=== PATIENT | female | born 1995 | race Caucasian/White ===

== ENCOUNTER 2019-10-18 06:26 | Emergency (ER) | payer BC, OTHER ==
[~2019-10-18] VITALS: Ht 160 cm; Wt 68.0 kg
== END 2019-10-18 06:48 | disposition home or self-care (01) ==
LOC: ED 06:29
DX: F10.120 Alcohol abuse with intoxication, uncomplicated (principal); F17.200 Nicotine dependence, unspecified, uncomplicated; Y90.9 Presence of alcohol in blood, level not specified
CPT/HCPCS: 99283

== ENCOUNTER 2020-04-24 23:48 | Emergency (ER) | payer BC, OTHER ==
[~2020-04-24] VITALS: Ht 162.6 cm; Wt 70.0 kg
[2020-04-25] MEDS ORDERED: LIDOCAINE 1%, 10ML INFIL ONE
[2020-04-25] MEDS ORDERED: LORazepam 1MG TABLET ONE ×3 (00:04→19:28)
[2020-04-25] MEDS ORDERED: ZIPRASIDONE 20 MG INJ IM ONE ×5 (00:16→10:30)
[2020-04-25 00:27] LABS: ALANINE AMINOTRANSFERASE 27 U/L (12-78); ALBUMIN 4.4 g/dL (3.4-5.0); ANION GAP 6 mmol/L (5-15); CALCIUM 8.5 mg/dL (8.5-10.1); CHLORIDE 113 mmol/L (98-107); SALICYLATE LEVEL 1.8 mg/dL (2.8-20.0)
[2020-04-25] MEDS ORDERED: LORazepam 1MG TABLET PO ONE (00:30)
[2020-04-25 00:31] LABS: BASOPHILS % (AUTO) 1 % (0-1); EOSINOPHILS % (AUTO) 0 % (1-7); LYMPHOCYTES % (AUTO) 34 % (22-44); MEAN CORPUSCULAR HEMOGLOBIN 30.1 pg (27.0-34.8); MEAN CORPUSCULAR HGB CONC 34.3 g/dL (32.4-35.8); MEAN PLATELET VOLUME 7.8 fL (7.4-10.4); MONOCYTES % (AUTO) 7 % (2-9); NEUTROPHILS % (AUTO) 59 % (42-75); PLATELET COUNT 299 x10^3/uL (130-400); RED BLOOD COUNT 4.99 x10^6/uL (3.82-5.3); RED CELL DISTRIBUTION WIDTH 12.3 % (9.6-15.2)
[2020-04-25 00:32] LABS: ALKALINE PHOSPHATASE 64 U/L (45-117); BILIRUBIN,TOTAL 0.4 mg/dL (0.2-1.0); CREATININE 0.93 mg/dL (0.55-1.02); MD NO; TOTAL PROTEIN 7.7 g/dL (6.4-8.2)
[2020-04-25 00:44] LABS: MICROSCOPIC INDICATED
[2020-04-25] MEDS ORDERED: LIDOCAINE-MPF 1%, 5ML ONE (00:51)
[2020-04-25 00:54] LABS: AMPHETAMINE SCREEN, URINE Negative (Negative); BARBITURATE SCREEN, URINE Negative (Negative); BENZODIAZEPINE SCREEN, URINE Negative (Negative); CANNABINOID SCREEN, URINE Positive (Negative); COCAINE SCREEN, URINE Negative (Negative); METHADONE SCREEN, URINE Negative (Negative); OPIATE SCREEN, URINE Negative (Negative)
--- NOTE | 2020-04-25 01:10 | NUR ---
ERP AT BEDSIDE TO SUTURE WOUNDS.
--- NOTE | 2020-04-25 01:17 | NUR ---
PT REMOVED FROM [facility].
--- NOTE | 2020-04-25 03:52 | NUR ---
LATE ENTRY SUMMARY NOTE: THIS PT WAS BIB [facility] IN [facility]. PT PRESENTED WITH SELF INFLICTED LESIONS, HX OF SAME, DENIED SI, STATED WOUNDS WERE FOR ATTENTION. PT PRESENTED EXTREMELY ANXIOUS, AND AGITATED. THIS RN EDUCATED PT ABOUT RULES IN THE HOSPITAL INCLUDING NOT TO TOUCH GARAGE DOORS, AND NOT TO LEAVER HER ROOM. PT PROCEDED TO LEAVE ROOM AND TOUCH GARAGE DOORS. SECURITY CALLED, PT YELLING, WAVING FINGER IN FACE OF SECURITY GAURD. PT PLACED IN RESTRAINTS MEDICATED TO AUG. PT SCREAMS COULD BE HEARD FROM DOWN THE CASH, PT THRASHING AROUND IN BED, AND SPITTING AT THE SITTER.
--- NOTE | 2020-04-25 05:57 | NUR ---
LATE ENTRY: PT PLACED IN RESTRAINTS AT 0030, PT REMOVED FROM RESTRAINTS AT 0130. PT PUT BACK IN RESTRAINTS AT 0415 AND REMOVED AT 0530. BOTH TIMES RESTRAINTS WERE PLACED BECAUSE PT WAS YELLING, AGGRESSIVELY APPROACHING STAFF AND SLAMMING THE DOOR TO HER ROOM.
--- NOTE | 2020-04-25 06:44 | NUR ---
TP: PACKET FAXED TO [facility]
--- NOTE | 2020-04-25 07:06 | NUR ---
rec'd report from YARELY Fuentes (noc shift) pt is sleeping in bed. chest rise noted. sheet is pulled over pt head. sitter is at door.
--- NOTE | 2020-04-25 08:21 | NUR ---
pt resting in bed. sitter at door. appears in no acute distress
--- NOTE | 2020-04-25 08:56 | NUR ---
pt is requesting clothes and to use the phone. explained the legal hold rules. pt started yelling she was leaving but then just laid down.
--- NOTE | 2020-04-25 09:09 | NUR ---
pt declines food. resting in bed, appears in no acute distress
--- NOTE | 2020-04-25 09:37 | NUR ---
TASK RN NOTE: PT LAYING BACK IN BED, RESPIRATIONS EVEN AND UNLABORED. SITTER OUTSIDE OF ROOM FOR DIRECT OBSERVATION AND Q15 MIN SAFETY CHECKS.
--- NOTE | 2020-04-25 10:24 | NUR ---
pt became agitated and was interrupting other pts by going into the hallway and yelling. pt wants her cellphone and to go home "this is a big misunderstanding i want to go home, im going to lose my job" pt agreed to PO ativan. redirected to remain in room.
--- NOTE | 2020-04-25 10:42 | NUR ---
pt was given the chance to call girlfriend to speak with her about calling her job to let them know she was in the hospital. pt spoke with psych and was updated on her plan of care.
[2020-04-25] MEDS ORDERED: OLANZAPINE 5 MG TABLET ONE (11:18)
[2020-04-25] MEDS: OLANZAPINE 5 MG TABLET PO SCH (11:22)
--- NOTE | 2020-04-25 11:30 | NUR ---
pt resting in bed. meal tray given
--- NOTE | 2020-04-25 12:06 | NUR ---
pt sleeping in bed. sitter at door
[2020-04-25] MEDS ORDERED: LORazepam 2 MG/ML, 1ML IM PRN (12:30)
[2020-04-25] MEDS ORDERED: DIPHENHYDRAMINE 50 MG CAPSULE PO PRN (12:30)
[2020-04-25] MEDS ORDERED: HALOPERIDOL 5 MG TABLET PO PRN (12:30)
[2020-04-25] MEDS ORDERED: DIPHENHYDRAMINE 50 MG/ML, 1ML IM PRN (12:30)
[2020-04-25] MEDS ORDERED: HALOPERIDOL 5 MG/ML IM PRN (12:30)
--- NOTE | 2020-04-25 13:04 | NUR ---
pt resting comfortably in bed.
--- NOTE | 2020-04-25 14:11 | NUR ---
BREAK RN: PT RESTING IN ROOM. SITTER AT DOOR. NO ACUTE DISTRESS NOTED. WILL CONTINUE TO MONITOR WHILE PRIMARY RN IS ON BREAK.
--- NOTE | 2020-04-25 15:21 | NUR ---
pt still sleeping. father stopped by to visit but told him to try back tomorrow when she wasn't sleeping. he said he will call tomorrow before coming by
--- NOTE | 2020-04-25 16:10 | NUR ---
PT GIVEN APPLE JUICE AND APPEARS IN NO ACUTE DISTRESS.
--- NOTE | 2020-04-25 17:16 | NUR ---
PT USING PHONE TO CALL GIRLFRIEND
--- NOTE | 2020-04-25 18:16 | NUR ---
pt resting in bed. food, drink, bathroom offered.
[2020-04-25] MEDS ORDERED: DIPHENHYDRAMINE 50 MG CAPSULE ONE (19:28)
[2020-04-25] MEDS: LORazepam 1MG TABLET PO PRN (19:37)
--- NOTE | 2020-04-25 21:20 | NUR ---
Patient is resting comfortably in bed. Vital Signs within normal limits.
--- NOTE | 2020-04-25 22:58 | NUR ---
PT SLEEPING IN BED, NO DISTRESS, SITTER AT DOORWAY
--- NOTE | 2020-04-26 00:39 | NUR ---
pt up to telephone x1, calm and cooperative, back in bed, and resting comfortably.
[2020-04-26] MEDS ORDERED: LORazepam 1MG TABLET ONE ×3 (04:45→18:16)
[2020-04-26] MEDS: LORazepam 1MG TABLET PO PRN ×3 (04:48→18:24)
--- NOTE | 2020-04-26 04:55 | NUR ---
Pt awake and saying she is anxious and unable to sleep. Medication administered. Pt cooperative.
--- NOTE | 2020-04-26 06:57 | NUR ---
Report and care given to dayshift RN
--- NOTE | 2020-04-26 07:03 | NUR ---
PT SUPINE ON GURNEY WITH EYES CLOSED, RESTING CALMLY. NAD. PT DENIES ANY NEEDS AT THIS TIME. SITTER WITHIN VIEW AND SAFETY PRECAUTIONS IN PLACE. WILL CONTINUE TO MONITOR.
--- NOTE | 2020-04-26 07:11 | NUR ---
HOSPITAL BED REQUESTED.
--- NOTE | 2020-04-26 08:00 | NUR ---
PT UP TO PHONE TO MAKE CALL. PT BACK TO ROOM AND PLACED ON HOSPITAL BED. NAD, VSS. CALM AND COOPERATIVE WITH STAFF. SITTER IN VIEW AND SAFETY PRECAUTIONS IN PLACE. SAFETY HUSSEIN DOWN. WILL CONTINUE TO MONITOR.
--- NOTE | 2020-04-26 08:26 | NUR ---
PT GIVEN BREAKFAST MEAL TRAY
[2020-04-26] MEDS ORDERED: OLANZAPINE 5 MG TABLET ONE (08:45)
[2020-04-26] MEDS: OLANZAPINE 5 MG TABLET PO SCH (08:47)
--- NOTE | 2020-04-26 09:03 | NUR ---
PT'S FATHER AT BEDSIDE. PT CALM AND COOPERATIVE. PT DENIES ANY NEEDS AT THIS TIME. SITTER IN VIEW AND SAFETY PRECAUTIONS IN PLACE.
--- NOTE | 2020-04-26 09:58 | NUR ---
PT SITTING UPRIGHT ON HOSPITAL BED. PT REQUESTS TEMP OF ROOM BE CHANGED DUE TO BEING "REALLY COLD". PT REPORTS IMPROVED ROOM TEMP AFTER 5 MINUTES. PT DENIES ANY ADDITIONAL NEEDS. SAFETY HUSSEIN DOWN AND SITTER IN VIEW.
--- NOTE | 2020-04-26 10:00 | NUR ---
PT REPORTS ANXIETY AND STATES "HEY CAN I HAVE SOME MEDICATION, I AM STARTING TO FEEL PRETTY ANXIOUS. I DONT NEED TO BE HERE, THIS WAS ALL A MISUNDERSTANDING, I JUST RELAPSED ON ETOH, I WAS SOBER SINCE JANUARY, I DONT EVEN REMBER DOING ANY OF THIS, I DONT WANT TO KILL MYSELF". MEDICATED PER EMAR.
[2020-04-26] MEDS ORDERED: HALOPERIDOL 5 MG TABLET ONE (10:03)
--- NOTE | 2020-04-26 10:36 | NUR ---
BULK MAIL CLERK SIMI AT BEDSIDE.
--- NOTE | 2020-04-26 11:03 | NUR ---
"THAT LAST MEDICATION DIDN'T HELP MY ANXIETY, CAN I HAVE SOMETHING ELSE?". PT MEDICATED PER EMAR. PT DENIES ANY ADDITIONAL NEEDS AT THIS TIME. SAFETY HUSSEIN DOWN AND SITTER IN VIEW.
--- NOTE | 2020-04-26 12:07 | NUR ---
PT REPORTS DECREASED ANXIETY FOLLOWING PRN MEDICATION. PT SITTING UPRIGHT ON HOSPITAL BED NAD, VSS. SAFETY HUSSEIN DOWN AND SITTER IN VIEW. DENIES ANY NEEDS AT THIS TIME.
--- NOTE | 2020-04-26 12:24 | NUR ---
PT RESTING ON HOSPITAL BED. GROVERN. PROVIDED W/ SI LUNCH TRAY, SITTER REMAINS AT BEDSIDE. ROOM REMAINS SECURE.
--- NOTE | 2020-04-26 13:02 | NUR ---
PT SITTING UPRIGHT ON HOSPITAL BED WATCHING TV, NAD, VSS. SAFETY HUSSEIN DOWN AND SITTER IN VIEW. DENIES ANY NEEDS AT THIS TIME.
--- NOTE | 2020-04-26 13:57 | NUR ---
PT SITTING UPRIGHT ON HOSPITAL BED WATCHING TV, NAD, VSS. SAFETY HUSSEIN DOWN AND SITTER IN VIEW. DENIES ANY NEEDS AT THIS TIME.
--- NOTE | 2020-04-26 15:02 | NUR ---
PT SUPINE ON HOSPITAL BED WITH EYES CLOSED, NAD, VSS. PT DENIES ANY NEEDS AT THIS TIME. SAFETY HUSSEIN DOWN AND SITTER IN VIEW. WILL CONTINUE TO MONITOR.
--- NOTE | 2020-04-26 16:00 | NUR ---
PT SUPINE ON HOSPITAL BED WITH EYES CLOSED WITH TV ON, NAD. PT DENIES ANY NEEDS AT THIS TIME. SAFETY HUSSEIN DOWN AND SITTER IN VIEW. WILL CONTINUE TO MONITOR.
--- NOTE | 2020-04-26 17:45 | NUR ---
PT PROVIDED W/ SI DINNER TRAY. PT RESTING IN BED. NADN. SITTER REMAINS AT BEDSIDE. ROOM REMAINS SECURE.
--- NOTE | 2020-04-26 18:10 | NUR ---
PT STATES "I AM STARTING TO GET PRETTY ANXIOUS AGAIN AND I WOULD REALLY LIKE A NICOTINE PATCH IF I CAN, I SMOKE TOO MUCH EVERYDAY". ERP AWARE. WILL MEDICATE PER EMAR. PT DENIES ANY ADDITIONAL NEEDS AT THIS TIME. SAFETY HUSSEIN DOWN AND SITTER IN VIEW. WILL CONTINUE TO MONITOR.
[2020-04-26] MEDS ORDERED: NICOTINE 21 MG/24 HR PATCH.TD24 ONE (18:17)
[2020-04-26] MEDS ORDERED: NICOTINE 21 MG/24 HR PATCH.TD24 TD ONE (18:30)
--- NOTE | 2020-04-26 18:34 | NUR ---
PT UP TO BATHROOM, ONCE PT EXITED BATHROOM SITTER AND OCCUPATIONAL NURSE POINTED OUT CIGARETTE/VAPE SMELL COMING FROM THE BATHROOM. DISCUSSION WITH PT WITH MIKHAIL AT BEDSIDE. PT STATES "I DID NOT SMOKE IN THERE, I AM NOT STUPID ENOUGH TO DO THAT". PT ALLOWED STAFF/SECURITY TO SEARCH BED, NO CIGARETTE OR VAPE PEN FOUND. PT VERBALIZED UNDERSTANDING THAT SMOKING IS NOT ALLOWED IN THE HOSPITAL. COOPERATIVE WITH STAFF. WILL CONTINUE TO MONITOR.
--- NOTE | 2020-04-26 19:17 | NUR ---
BEDSIDE REPORT TO CLINTON PRITCHETT
--- NOTE | 2020-04-26 19:19 | NUR ---
REPORT RECEIVED FROM YARELY AYALA. ASSUMED CARE OF PT. PT RESTING ON [facility]. SITTER OUTSIDE DOOR MONITORING PT
[2020-04-26] MEDS ORDERED: DIPHENHYDRAMINE 50 MG CAPSULE ONE (19:35)
--- NOTE | 2020-04-26 19:39 | NUR ---
PT REQUESTING MEDS "TO HELP ME SLEEP". PT HAS BEEN GIVEN ATIVAN EARLIER BY DAY SHIT. PT HAS PRN ORDERS FOR BENEDRYL PO. PT ALSO REQUESTING TO MAKE A PHONE CALL. PT ALLOWED TO MAKE PHONE CALL. SITTER MONITORING PT
--- NOTE | 2020-04-26 20:15 | NUR ---
PT GIVEN BENEDRYL 50MG PO PER EMAR. 5 RIGHTS ADDRESSED. PT BACK TO BED. PROVIDED WITH WARM BLANKETS AND SPRITE. DENIES ANY OTHER NEEDS AT THIS TIME. ROOM REMAINS SECURE. SITTER OUTSIDE DOOR MONITORING PT
[2020-04-26 20:16] VITALS: BP 117/72
--- NOTE | 2020-04-26 21:22 | NUR ---
PT LYING AWAKE, RESTING QUIETLY WATCHING TV. DENIES ANY NEEDS AT THIS TIME. SITTER OUTSIDE DOOR MONITORING PT. ROOM REMAINS SECURE.
--- NOTE | 2020-04-26 23:03 | NUR ---
REPORT RECEIVED FROM CLINTON. PT IS CALM/SLEEPING. EQUAL RISE AND FALL OF CHEST. ROOM SECURE. GARAGE DOORS DOWN. SITTER AT BEDSIDE.
--- NOTE | 2020-04-27 00:40 | NUR ---
TASK RN: PT RESTING IN [facility] EYES CLOSED. EVEN/REGULAR RESPIRATIONS NOTED. PT IN HOSPITAL BED. ROOM SECURE. SITTER PRESENT.
--- NOTE | 2020-04-27 03:51 | NUR ---
THIS RN WAS TOLD THAT PT WAS WANTING SLEEPING PILLS. RN WENT TO TELL PT THAT SHE COULD NOT HAVE SLEEPING PILLS DUE TO TIME OF DAY. PT EYES CLOSED IN BED, CALM. WCTM.
--- NOTE | 2020-04-27 06:39 | NUR ---
PT SLEEPING. EQUAL RISE OF CHEST WALL. SITTER AT BEDSIDE. ROOM SECURE.
--- NOTE | 2020-04-27 07:04 | NUR ---
REPORT RECEIVED FROM YARELY GRANGER
--- NOTE | 2020-04-27 07:30 | NUR ---
PT RESTING IN ED BED WITH EYES CLOSED. EVEN RISE AND FALL OF CHEST NOTED. PT IN FULL VIEW OF THE SITTER. ROOM SECURED.
--- NOTE | 2020-04-27 10:05 | NUR ---
PT SITTING IN BED EATING BREAKFAST AND WATCHING TV IN FULL VIEW OF THE SITTER. VS OBTAINED.
[2020-04-27] MEDS ORDERED: OLANZAPINE 5 MG TABLET ONE (10:43)
[2020-04-27] MEDS: OLANZAPINE 5 MG TABLET PO SCH (10:49)
--- NOTE | 2020-04-27 12:06 | NUR ---
PT REC'VD DISCHARGE INSTRUCTIONS AND EDUCATION. PT AND SIGNIFICANT OTHER HAD NO QUESTIONS. PT AMBULATED TO DC AREA, STEADY GAIT.
== END 2020-04-27 12:09 | disposition home or self-care (01) ==
LOC: ED 04-25 01:27
DX: S11.81XA Laceration without foreign body of other specified part of neck, initial encounter (principal); S61.512A Laceration without foreign body of left wrist, initial encounter; R45.851 Suicidal ideations; F39 Unspecified mood [affective] disorder; F19.14 Other psychoactive substance abuse with psychoactive substance-induced mood disorder; F41.9 Anxiety disorder, unspecified; R94.31 Abnormal electrocardiogram [ECG] [EKG]; W45.8XXA Other foreign body or object entering through skin, initial encounter; Y93.89 Activity, other specified; Y92.89 Other specified places as the place of occurrence of the external cause; Y99.8 Other external cause status
CPT/HCPCS: 12044; 36415; 80053; 80307; 81001; 84703; 85025; 87086; 93005; 96372; 99285; J3486